=== PATIENT | male | born 1965 | race Caucasian/White ===

== ENCOUNTER 2025-05-16 07:49 | Outpatient (AMB) | payer OTHER, SELFPAY ==
--- NOTE | 2025-05-16 07:46 | A.PHYSOV_ITS ---
Vital Signs 05/16/25 07:51 Height 6 ft Weight 215 lb BMI 29.2 Intake Visit Reasons: MRI followup Intake Note: Patient is a 59 year old female in office today for a mri follow up visit. 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 The onset of symptoms was in late February or early March 2025 without any preceding injury. The patient was initially seen on April 03, 2025, and was treated with an 18- day prednisone taper and physician-guided home exercises, but the pain continued to be significant, rated at 7/10. Due to the failure of conservative care, a lumbosacral spine MRI was obtained on April 16, 2025. Past medical history is notable for a stable L3 compression fracture identified on lumbar sacral spine x-rays from July 26, 2020. The most recent prior MRI was in 2018. The patient denies any change in bowel or bladder habits, fever, or chills. Patient returned today with results of updated lumbosacral spine MRI dated 04/16/2025, please see below for the complete description of the MRI. Images were independently reviewed. He presented accompanied by his . Radicular symptoms continued to be reported on the right side. He has been awakened from the deep sleep in the middle of the night by pain. Pain Description - Onset: Late February or early March 2025, without specific injury. - Location: Pain is located in the lower back and radiates to the right buttock and down the back of the leg. - Radiation: The patient also reports associated pain in the right groin. - Severity: The pain was rated 7/10 after a course of prednisone. - Quality: The pain can be severe enough to cause screaming at night. - Timing: The pain is intermittent. Results - Lumbosacral spine MRI (April 16, 2025): - L2-L3: Right foraminal/extraforaminal disc protrusion with facet arthropathy, new since 2018, contacting the traversing right L3 and exiting right L2 nerve roots, causing moderate right-sided neural foraminal narrowing. - L3-L4: Left paracentral and foraminal disc protrusion contacting the giancarlo ing left L4 nerve root, with moderate right neural foraminal narrowing touching the exiting right L3 nerve root. - L4-L5: Diffuse disc bulge with moderate to severe left neural foraminal narrowing. - L5-S1: Unremarkable. - Lumbosacral spine X-rays (July 26, 2020): Stable L3 compression fracture. [facility] Medical History (Updated 05/16/25 @ 08:02 by Johan Baltazar DO) Lumbar radiculitis Lumbar disc herniation Social History Household Members: Spouse Alcohol intake: current Alcohol intake frequency: does not drink Use of substances other than those prescribed or required for medical reasons: No Review of Systems Narrative Review of Systems - Constitutional: Denies fever or chills. - Gastrointestinal: Denies any change in bowel habits. - Genitourinary: Denies any change in bladder habits. Physical Exam Exam Exam: Physical Exam - Constitutional: Appears in no acute distress. - Gait: No antalgic gait observed. - Musculoskeletal: Lumbar range of motion is restricted in side bending and rotation. - Back: Tenderness to palpation over the mid to lower lumbar spinous processes. - Neurological: Examination of the lower extremities is nonfocal. - Special Tests: Dural tension signs are negative. - Neurological: Hyperactive maneuvers are negative. - Neurological: No upper motor neuron signs demonstrated. Vital Signs: BMI result Body Mass Index 29.2 Assessment & Plan Assessment & Plan (1) Lumbar disc herniation: Code(s): M51.26 - Other intervertebral disc displacement, lumbar region Category: Medical (2) Lumbar radiculitis: Code(s): M54.16 - Radiculopathy, lumbar region Category: Medical Plan Pain Management - Affect: The patient reports severe pain that causes screaming at night and expresses fear regarding surgery. - Analgesia: Current pain level is 7/10, with a prior unsuccessful trial of an 18-day prednisone taper. - Activities of Daily Living: Not specifically discussed, but the pain is significant enough to cause intermittent problems and disturb sleep. Plan Patient was informed and verbally consented to the use of an ambient scribe for clinic note documentation during this visit. 1. Lumbar Radiculopathy The patient's right-sided radicular symptoms are attributed to findings on the recent lumbar MRI, most pertinently a new right foraminal/extraforaminal disc protrusion at L2-L3 contacting the right L2 and L3 nerve roots. The patient has failed conservative management with a prednisone taper and home exercises. After discussing options including surgery and injections, the patient expressed a desire to avoid surgery and proceed with an injection. The plan is to schedule a right L2 and L3 transforaminal epidural steroid injection with sedation, per the patient's request. The procedure will be performed at [facility], and the office will obtain prior insurance authorization before calling the patient to schedule. 2. History Of Lumbar Compression Fracture The patient's history of an L3 compression fracture was noted, which is stable and healed. This is not contributing to the current symptoms, and no new treatment is indicated for this issue. Discussion Notes I reviewed the results of the patient's recent lumbar spine MRI (04/16/2025) with the patient. I explained that the most pertinent finding is a new disc protrusion at the L2-L3 level on the right, which is irritating the nerve roots and is the likely cause of the patient's symptoms. I also noted that the old L3 compression fracture is healed and not a source of the current pain. We discussed treatment options, which include doing nothing, surgery, or a targeted epidural steroid injection. The patient expressed fear of surgery and wished to proceed with an injection. Due to past painful experiences, the patient requested sedation for the procedure, and I agreed this was a reasonable option. I explained that the injection would be targeted near the irritated L2 and L3 nerve roots. I informed the patient that my office would obtain insurance authorization for a right L2-L3 transforaminal epidural steroid injection and then they would be called to schedule the procedure, which is performed at [facility] on Mondays. The patient and the patient's family understood and agreed with the plan. Risks and benefits of the procedure were discussed with the patient. Potential alternative measures were also discussed. Patient understands that the procedure is completely elective. Potential side effects associated with injectable medications were discussed. All questions were answered to the patient's satisfaction. Patient Instructions - Your recent back MRI shows a new disc bulge that is pressing on a nerve, which is causing your back and leg pain. - We will schedule you for an injection of steroid medication in your back to help with the pain and inflammation. - You have requested to have sedation (be put into a light sleep) for the procedure to make you more comfortable, which we will arrange. - Our office will first get approval from your insurance and then will call you to schedule the procedure. - The procedure will take place at [facility]. Orders: Referrals Physiatry Procedure Notification M51.26 - Other intervertebral disc displacement, lumbar region, M54.16 - Radiculopathy, lumbar region Coding Level of Care Code Est Pt Level 4 (96761) Complex visit Add On G2211 Diagnoses Lumbar disc herniation M51.26 Lumbar radiculitis M54.16
[2025-05-16 07:51] VITALS: BMI 29.2
--- OUTSIDE RECORDS SUMMARY | 2025-05-16 07:55 | XMS_ITS | Clinical Summary ---
Author Organization [facility] Address [address] [place] [address] Care Team Providers Care Ear Flap Binder Name Role Phone Ranjit Lynne MD Primary Care Provider [phone] Allergies No known active allergies Medications Medication Sig Dispensed Refills Start Date End Date Status amLODIPine (NORVASC) tablet 5 mg TAKE 1 TABLET BY MOUTH EVERY DAY 0 04/16/2020 Active diclofenac (VOLTAREN) 75 MG EC tablet Take 75 mg by mouth. 0 04/08/2020 Active LORazepam (ATIVAN) 1 MG tablet TAKE 1 TABLET BY MOUTH TWICE A DAY NEEDED 0 06/20/2020 Active metoprolol succinate (TOPROL-XL) 24 hr tablet 25 mg Take 25 mg by mouth. 0 05/28/2020 Active PARoxetine (PAXIL) 40 MG tablet Take 40 mg by mouth daily. 0 05/11/2020 Active pravastatin (PRAVACHOL) tablet 40 mg TAKE 1 TABLET BY MOUTH EVERY DAY 0 04/16/2020 Active oxyCODONE (ROXICODONE) 5 MG immediate release tablet Take 1-2 tabs every 4 hours needed for pain following your right shoulder surgery 30 tablet 0 10/03/2020 Active Active Problems Problem Noted Date Diagnosed Date Tendinopathy of right rotator cuff 07/19/2020 Impingement syndrome of right shoulder Social History Tobacco Use Types Packs/Day Years Used Date Smoking Tobacco: Never Assessed Sex and Gender Information Value Date Recorded Sex Assigned at Not on file Gender Identity Not on file Sexual Orientation Not on file Job Start Date Occupation Industry Not on file Not on file Not on file Last Filed Vital Signs Vital Sign Reading Time Taken Comments Blood Pressure - - Pulse - - Temperature - - Respiratory Rate - - Oxygen Saturation - - Inhaled Oxygen Concentration - - Weight 95.3 kg (210 lb) 07/09/2020 10:40 AM EST Height 182.9 cm (6') 07/09/2020 10:40 AM EST Body Mass Index 28.48 07/09/2020 10:40 AM EST Plan of Treatment Health Maintenance Due Date Last Done Comments Hepatitis B Vaccines (1 of 3 - 3-dose series) 1965 Hepatitis C Screening 1965 COVID-19 Vaccine (#1) 04/17/1968 Depression Screening 1979 BMI Counseling 10/15/1985 Preventative Health Evaluation 10/15/1985 Colon Cancer Screening (Colonoscopy) 10/15/2012 Shingrix-Zoster Vaccine (1 of 2) 10/15/2017 Influenza Vaccine (#1) 2025 DTap / Tdap / Td (2 - Td or Tdap) 02/19/2026 016 Pneumococcal Vaccine Aged Out No long er eligible based on patient's age to complete this topic RSV Ped < 20 months Aged Out No longe r eligible based on patient's age to complete this topic Care Teams Ear Flap Binder Relationship Specialty Start Date End Date Ranjit Lynne MD [address] [place] [id number] PCP - General Internal Medicine 05/17/20
--- OUTSIDE RECORDS SUMMARY | 2025-05-16 07:55 | XMS_ITS | Clinical Summary ---
Author Organization 175 [facility] Address [address] [place] [address] Phone Care Team Providers Care [employer]er Name Role Phone Elaine Elizabeth DO Primary Care Provider [phone] Allergies No known active allergies Medications clotrimazole (LOTRIMIN) 1 % cream Apply to skin and toenails daily for 12 weeks 4 Active LORazepam (ATIVAN) 1 mg tablet Take 1 tablet (1 mg total) by mouth 2 (two) times a day if needed. 1 Active PARoxetine (PAXIL) 40 mg tablet Take 1 tablet (40 mg total) by mouth. 0 Active prazosin (MINIPRESS) 1 mg capsule Take by mouth. 3 Active hydrocortisone 2.5 % cream Apply affected area twice a day 2 Active pravastatin (PRAVACHOL) 40 mg tablet TAKE 1 TABLET BY MOUTH EVERY DAY 90 tablet 1 5 Active gabapentin (NEURONTIN) 100 mg capsule Take 1 capsule (100 mg total) by mouth 3 (three) times a day. 270 each 5 Active cyclobenzaprin e (FLEXERIL) 10 mg tablet Take 1 tablet (10 mg total) by mouth at bedtime as needed for muscle spasms. 30 tablet 2 5 Active amLODIPine (NORVASC) 5 mg tablet TAKE 1 TABLET BY MOUTH 1 TIME EACH DAY. 90 tablet 5 Active amLODIPine (NORVASC) 5 mg tablet Take 1 tablet (5 mg total) by mouth 1 (one) time each day. 90 each 1 02/24/202 5 025 Discontinued Active Problems Problem Noted Date Diagnosed Date Anxiety and depression 04/10/2024 Overview (04/10/2024): Psychiatry prescribing Hyperlipidemia 04/10/2024 Hypertension 04/10/2024 Low back pain 04/10/2024 Overview (04/10/2024): WC related, 2005; PVSS BYRON (obstructive sleep apnea) 04/10/2024 Overview (04/10/2024): [facility] Home Polysomnogram: Date 03/29/2017; AHI 8, Unclassified apneas 0; Obstructive apneas 23; Central apneas 4; Mixed apneas 0; hypopneas 22; average oxygen saturation 94% (lowest 86% without saturations <88% for 5% or more of study) [facility] Polysomnogram treatment study. Date 07/05/2017 . SE 70 % SM 73 %; spent 12 % of the study in REM. At the pressure of CPAP @ 16; RDI 4.3 (AHI 4.3), Central apneas 4; Obstructive apneas 0; Mixed apneas 0; hypopneas 0; RERAs 0; and, average oxygen saturation was 95%. For the entire study, PLMs ~37. Note; central apnea emergence on higher CPAP pressures; autoset CPAP 6-16 recommended. 318 pt declines CPAP Eczema of both external ears 04/29/2022 Tendinopathy of right rotator cuff 07/19/2020 Impingement syndrome of right shoulder 1 Hearing loss 09/09/2018 Impaired fasting glucose 02/05/2016 Encounters Date Type Department Care Team Description 04/16/2025 7:42 AM EST - 04/16/2025 11:59 PM EST Hospital Encounter [facility] MRI [address] [place] [id number] Radiculopathy; Other intervertebral disc displacement, lumbar region Discharge Disposition: Home or Self Care 04/10/2025 1:15 PM EDT Office Visit Orthopedic Surgery [facility] [address] [facility] [address] [place] [phone] Vladimir Reyes, DPM Bursitis of right foot (Primary Dx); Plantar fascial fibromatosis from Last 3 Months Immunizations Immunization Administration Dates Next Due Tdap Tetanus diptheria acell ular pertussis (Boostrix; Adacel) 7yo and older 02/20/2016 Surgical History Surgery Date Site/Laterality Comments COLONOSCOPY 01/13/2019 PROCEDURE: HISTORICAL COLONOSCOPY; COMMENT: no polyps SHOULDER SURGERY 08/08/2020 Right PROCEDURE: HISTORICAL SHOULDER SURGERY; COMMENT: arthroscopy, distal clavicle excision, AC release, acromioplasty Medical History Medical History Date Comments Hypertension DX:Hypertension Anxiety and depression DX:Anxiet y and depression Low back pain DX:Low back pain BYRON (obstructive sleep apnea) DX :BYRON (obstructive sleep apnea) Hyperlipidemia DX:Hyperlipidemi a Anemia 02/05/2016 DX:Anemia Prediabetes 02/05/2016 DX:Prediabetes History of spinal fracture 02/05/2016 DX:Hi story of spinal fracture; COMMENT: Lumbar, closed Family History Medical History Relation Name Comments Hypertension Father [place] Prostate cancer Father Hypertension Mother Coronary artery disease Neg Hx Diabetes Neg Hx Relation Name Status Comments Father Mother Social History Tobacco Use Types Packs/Day Years Used Date Smoking Tobacco: Former Cigarettes Smokeless Tobacco: Never Tobacco Cessation:Counseling Given: Not Answered Alcohol Use Standard Drinks/Week Comments Yes 0 (1 standard drink = 0.6 oz pur e alcohol) Sex and Gender Information Value Date Recorded Sex Assigned at Not on file Legal Sex Male 9:16 PM EST Gender Identity Not on file Sexual Orientation Not on file Obstetrics History Last Filed Vital Signs Vital Sign Reading Time Taken Comments Blood Pressure 132/84 01/16/2025 4:21 PM EDT Pulse 86 01/16/2025 4:03 PM EDT Temperature - - Respiratory Rate 16 01/16/2025 4:03 PM EDT Oxygen Saturation - - Inhaled Oxygen Concentration - - Weight 98 kg (216 lb) 01/16/2025 4:03 PM EDT Height 182.9 cm (6') 11/16/2024 9:00 AM EDT Body Mass Index 29.29 11/16/2024 9:00 AM EDT Plan of Treatment Upcoming Encounters Date Type Department Care Team (Late st Contact Info) Description 07/20/2025 8:00 AM EST Office Visit [facility] [address] [facility] [address] Chino Dutton PA [address] [place] [address] Health Maintenance Due Date Last Done Comments Hepatitis B Vaccines (1 of 3 - 19+ 3-dose series) 10/15/1986 Pneumococcal Vaccine: 50+ Years (1 of 1 - PCV) 10/15/2017 RSV Immunization Adult Patients (1 - Risk 50-74 years 1-dose series) 10/15/2017 Zoster Vaccines (1 of 2) 10/15/2017 HIV Screening 05/23/2022 Medicare Annual Wellness Visit 05/23/2022 Social Influencers of Health Screening 05/23/2022 Depression Screening 06/14/2024 COVID-19 Vaccine (3 - 2024-2 6 season) 2025 12/03/2020, 11/12/2020 Influenza Vaccine (#1) 2025 Hypertension/CHF/CAD Annual BMP Blood Test 01/17/2026 01/17/2025, 08/08/2024, 01/05/2024 DTaP,Tdap,and Td Vaccines (2 - Td or Tdap) 02/19/2026 02/20/2016 Colorectal Cancer Screening: Colonoscopy 01/13/2029 01/13/2019 Cholesterol Screening (Lipid Panel) 01/17/2030 01/17/2025, 01/05/2024, 01/05/2024 Hepatitis C Screening Completed 08/18/2021 HIB Vaccines Aged Out No longer eligi ble based on patient's age to complete this topic HPV Vaccines Aged Out No longer eligi ble based on patient's age to complete this topic Hepatitis A Vaccines Aged Out No long er eligible based on patient's age to complete this topic IPV Vaccines Aged Out No longer eligi ble based on patient's age to complete this topic MMR Vaccines Aged Out No longer eligi ble based on patient's age to complete this topic Meningococcal ACWY Vaccine Aged Out N o longer eligible based on patient's age to complete this topic Meningococcal B Vaccine Aged Out No l onger eligible based on patient's age to complete this topic RSV Immunization Patients Under 20 months Aged Out No longer eligible b ased on patient's age to complete this topic Varicella Vaccines Aged Out No longer eligible based on patient's age to complete this topic Procedures Procedure Name Priority Date/Time Associated Diagnosis Comments MR LUMBAR SPINE WO CONTRAST Routine 04/16/2025 8:20 AM EST Radiculopathy Other intervertebral disc displacement, lumbar region COMPREHENSIVE METABOLIC PANEL Routine 01/17/2025 8:34 AM EDT Primary hypertension Mixed hyperlipidemia LIPID PANEL WITH REFLEX TO DIRECT LDL Routine 01/17/2025 8:34 AM EDT Primary hypertension Mixed hyperlipidemia HEPATITIS C SCREENING Routine 08/18/2021 COLONOSCOPY Routine 01/13/2019 from Last 3 Months or Most Recently Relevant to Health Maintenance Results * MR Lumbar Spine wo Contrast (04/16/2025 8:20 AM EST) Anatomical Region Laterality Modality L-spine, Spine Magnetic Resonan ce 04/17/2025 3:46 AM EST Impressions 04/17/2025 4:07 AM EST 1. Multilevel lumbar spondylosis, as above, most prominent at L2-L3 and L3-L4; progressed from prior 2. Chronic compression deformity of L3 -------- FINAL REPORT -------- Dictated By: Quiana Pack Dictated Date: 04/17/2025 03:46 ET Assigned Physician: Quiana Pack Reviewed and Electronically Signed By: Quiana Pack Signed Date: 04/17/2025 04:07 ET Workstation ID: [id number] Transcribed By: Self Edit Transcribed Date: 04/17/2025 03:46 ET Narrative 04/17/2025 4:07 AM EST INDICATION: Radiculopathy, disc displacement . Low back pain referred to the right leg. COMPARISON: Correlation is made with [facility] MRI of the lumbar spine dated October 2017 TECHNIQUE: Multiplanar, multisequence MRI was performed of the lumbar spine without IV contrast. FINDINGS: Study assumes 5 lumbar type vertebral bodies. Chronic moderate compression deformity of L3. Minimal grade 1 retrolisthesis of L3 on L4. Conus terminates at T12. Bone marrow signal is heterogeneous with vertebral body hemangioma at T12 and L2, similar to prior. Multilevel anterior marginal osteophyte formation. Multilevel disc desiccation. Specific findings are seen at the following levels: T12-L1:No significant spinal canal stenosis or neural foraminal narrowing on sagittal view L1-L2:Mild diffuse disc bulge without significant spinal canal stenosis or neural foraminal narrowing. L2-L3:Diffuse disc bulge with new right foraminal/extra foraminal protrusion with facet arthropathy which effaces the right lateral recess and touches the right traversing L3 nerve root and exiting right L2 nerve root and results in moderate right-sided neural foraminal narrowing; new from prior. Mild left-sided neural foraminal narrowing. Additionally, posterior osteophyte formation is present. L3-L4:Diffuse disc bulge with left paracentral and foraminal disc protrusion with bilateral facet arthropathy which effaces and narrows the left lateral recess and results in moderate to severe left neural foraminal narrowing with touching of the traversing left L4 nerve root and moderate right-sided neural foraminal narrowing with touching of the exiting right L3 nerve root. L4-L5:Diffuse disc bulge with facet arthropathy (eccentric to the left) which effaces the ventral thecal sac and results in moderate to severe left neural foraminal narrowing with touching of the exiting left L4 nerve root. L5-S1:No significant spinal canal stenosis or neural foraminal narrowing. Facet arthropathy. Miscellaneous: Bilateral parapelvic cysts Procedure Note Quiana Pack MD - 04/17/2025 INDICATION: Radiculopathy, disc displacement . Low back pain referred tothe right leg. COMPARISON: Correlation is made with [facility] MRI of the lumbar spinedated October 2017 TECHNIQUE: Multiplanar, multisequence MRI was performed of the lumbarspine without IV contrast. FINDINGS: Study assumes 5 lumbar type vertebral bodies. Chronic moderatecompression deformity of L3. Minimal grade 1 retrolisthesis of L3 on L4.Conus terminates at T12. Bone marrow signal is heterogeneous withvertebral body hemangioma at T12 and L2, similar to prior. Multilevelanterior marginal osteophyte formation. Multilevel disc desiccation.Specific findings are seen at the following levels: T12-L1:No significant spinal canal stenosis or neural foraminal narrowingon sagittal view L1-L2:Mild diffuse disc bulge without significant spinal canal stenosis orneural foraminal narrowing. L2-L3:Diffuse disc bulge with new right foraminal/extra foraminalprotrusion with facet arthropathy which effaces the right lateral recessand touches the right traversing L3 nerve root and exiting right L2 nerveroot and results in moderate right-sided neural foraminal narrowing; newfrom prior. Mild left-sided neural foraminal narrowing. Additionally,posterior osteophyte formation is present. L3-L4:Diffuse disc bulge with left paracentral and foraminal discprotrusion with bilateral facet arthropathy which effaces and narrows theleft lateral recess and results in moderate to severe left neuralforaminal narrowing with touching of the traversing left L4 nerve root andmoderate right-sided neural foraminal narrowing with touching of theexiting right L3 nerve root. L4-L5:Diffuse disc bulge with facet arthropathy (eccentric to the left)which effaces the ventral thecal sac and results in moderate to severeleft neural foraminal narrowing with touching of the exiting left L4 nerveroot. L5-S1:No significant spinal canal stenosis or neural foraminal narrowing.Facet arthropathy. Miscellaneous: Bilateral parapelvic cysts IMPRESSION: 1. Multilevel lumbar spondylosis, as above, most prominent at L2-L3 andL3-L4; progressed from prior 2. Chronic compression deformity of L3 -------- FINAL REPORT -------- Dictated By: Quiana Pack Dictated Date: 04/17/2025 03:46 ET Assigned Physician: Quiana Pack Reviewed and Electronically Signed By: Quiana Pack Signed Date: 04/17/2025 04:07 ET Workstation ID: [id number] Transcribed By: Self Edit Transcribed Date: 04/17/2025 03:46 ET Johan Baltazar DO [facility] MRI PROCEDURES Final Result * (ABNORMAL) Lipid panel with reflex to direct LDL (01/17/2025 8:34 AM EDT) Cholesterol 189 0 - 200 mg/dL LAB CHEMISTRY METHOD 01/17/2025 12:27 PM [facility] Triglycerides 191(H) 0 - 150 mg/dL LAB CHEMISTRY METHOD 01/17/2025 12:27 PM [facility] HDL 45 >=40 mg/dL LAB CHEMISTRY METHOD 01/17/2025 12:27 PM [facility] LDL Calculated 106(H) 0 - 100 mg/dL LAB CHEMISTRY METHOD 01/17/2025 12:27 PM [facility] Comment:Estimated LDL Calcul ated using equation: Total cholesterol - HDL cholesterol - (Triglycerides/5) VLDL Cholesterol Andreas 38.2 mg/dL LAB CHEMISTRY METHOD 01/17/2025 12:27 PM [facility] Non HDL Chol. (LDL+VLDL) 144 <145 mg/dL LAB CHEMISTRY METHOD 01/17/2025 12:27 PM [facility] Chol/HDL Ratio 4.2 0.0 - 4.4 LAB CHEMISTRY METHOD 01/17/2025 12:27 PM [facility] Blood Venous blood specimen / Unknown Venipuncture / Unknown 01/17/2025 8:34 AM EDT 01/17/2025 8:34 AM EDT [place] [facility] BLOOD ORDERABLES Fi nal Result [facility] [address] [place] [address], * (ABNORMAL) Comprehensive metabolic panel (01/17/2025 8:34 AM EDT) Sodium 140 133 - 145 mmol/L LAB CHEMISTRY METHOD 01/17/2025 12:30 PM [facility] Potassium 4.5 3.5 - 5.5 mmol/L LAB CHEMISTRY METHOD 01/17/2025 12:30 PM [facility] Chloride 109 96 - 110 mmol/L LAB CHEMISTRY METHOD 01/17/2025 12:30 PM [facility] CO2 26 21 - 32 mmol/L LAB CHEMISTRY METHOD 01/17/2025 12:30 PM [facility] Anion Gap 5 3 - 11 LAB CHEMISTRY METHOD 01/17/2025 12:30 PM [facility] Glucose 113(H) 70 - 100 mg/dL LAB CHEMISTRY METHOD 01/17/2025 12:30 PM [facility] BUN 13 5 - 25 mg/dL LAB CHEMISTRY METHOD 01/17/2025 12:30 PM [facility] Creatinine 0.77 0.70 - 1.30 mg/dL LAB CHEMISTRY METHOD 01/17/2025 12:30 PM [facility] eGFR 104 >=60 mL/min/1. 73m2 LAB CHEMISTRY METHOD 01/17/2025 12:30 PM [facility] Comment:Calculation based on the Chronic Kidney Disease Epidemiology Collaboration (CKD-EPI) equation refit without adjustment for race. BUN/Creatinine Ratio 16.9 LAB CHEMISTRY METHOD 01/17/2025 12:30 PM [facility] Calcium 9.3 8.5 - 10.5 mg/dL LAB CHEMISTRY METHOD 01/17/2025 12:30 PM [facility] AST (SGOT) 18 10 - 42 unit/L LAB CHEMISTRY METHOD 01/17/2025 12:30 PM [facility] ALT (SGPT) 36 10 - 60 unit/L LAB CHEMISTRY METHOD 01/17/2025 12:30 PM [facility] Alkaline Phosphatase 73 42 - 121 unit/L LAB CHEMISTRY METHOD 01/17/2025 12:30 PM [facility] Total Protein 7.2 6.0 - 8.0 g/dL LAB CHEMISTRY METHOD 01/17/2025 12:30 PM [facility] Albumin 4.1 3.2 - 5.0 g/dL LAB CHEMISTRY METHOD 01/17/2025 12:30 PM EDT [facility] Total Bilirubin 0.7 0.0 - 1.4 mg/dL LAB CHEMISTRY METHOD 01/17/2025 12:30 PM EDT [facility] Blood Venous blood specimen / Unknown Venipuncture / Unknown 01/17/2025 8:34 AM EDT 01/17/2025 8:34 AM EDT [place] [facility] BLOOD ORDERABLES Fi nal Result [facility] [address] [place] [address], * Hepatitis C Screening (08/18/2021) Pathologist [facility] Hepatitis C Screening negative Historical Provider HEALTH MAINTENANCE Final Result * Colonoscopy (01/13/2019) Pathologist [facility] Colonoscopy completed Anatomical Region Laterality Modality Other Historical Provider HEALTH MAINTENANCE Final Result from Last 3 Months or Most Recently Relevant to Health Maintenance Insurance [employer] MED[employer] Member Subscriber Plan / Payer (Ef fective 2019-Present) Name:ISAURO AGRAWAL Relation to Subscriber:Self Name:Isauro Agrawal Payer ID:[id number] Group ID:[id number] Type:Not on file Address: [address] [facility] [place] [address] Care Teams [employer] Relationship Specialty Start Date End Date Elaine Elizabeth DO [address] [place] [address] [phone] (work) PCP - General Internal Medicine 04/21/24
== END 2025-05-16 08:07 | disposition home or self-care (01) ==
LOC: HO.HPHYS 07:50
PROVIDERS: PCP Internal Medicine; Visit Provider Physical Medicine & Rehabilitation
DX: M51.26 Other intervertebral disc displacement, lumbar region (principal); M54.16 Radiculopathy, lumbar region
CPT/HCPCS: 99214; G2211

== ENCOUNTER → 2025-05-16 07:49 | Outpatient (BNVA) | payer OTHER, SELFPAY | PROVIDERS: PCP Internal Medicine; Visit Provider Physical Medicine & Rehabilitation | DX: M51.16 Intervertebral disc disorders with radiculopathy, lumbar region (principal); Z87.81 Personal history of (healed) traumatic fracture | CPT/HCPCS: 99212 ==

== ENCOUNTER 2025-05-28 09:29 | Day surgery (SDC) | payer OTHER, SELFPAY ==
[2025-05-24 09:17] VITALS: BMI 29.2
--- NOTE | 2025-05-24 10:12 | HO.ANESPROP2 ---
Documented by User: Yvonne Pacheco NP 05/24/25 10:13 HPI - Anesthesia Eval Consult details Narrative: 59yo M for Right L2 and L3 Lumbar Transforaminal [facility]ORA PMFSH Active Problems Active Problems: All Active Problems Lumbar radiculitis (Acute) Lumbar disc herniation (Acute) Past Medical History Medical History Rib fracture Impaired fasting glucose Anxiety Depression BYRON (obstructive sleep apnea) Hearing loss Back pain Elevated cholesterol HTN (hypertension) Lumbar radiculitis Lumbar disc herniation Surgical History Surgical History Hx of shoulder surgery H/O colonoscopy Social History Social History Household Members: Spouse Alcohol intake: current Alcohol intake frequency: does not drink Patient Tobacco Use Status: Former Tobacco user Tobacco use type: Cigarette Use of substances other than those prescribed or required for medical reasons: No Are you DNR?: No Advance Directives: No Advance Directives Information Provided: Yes Meds Allergies Allergy/AdvReac Type Severity Reaction Status Date / Time No Known Allergies Allergy Verified 05/28/25 10:29 Home Medications ?Medication ?Instructions ?Recorded ?Confirmed ?Last Taken ?Type amlodipine 5 mg tablet 5 mg PO DAILY 05/07/25 05/28/25 Unknown History cyclobenzaprine 10 mg tablet 10 mg PO BEDTIME 05/07/25 05/28/25 Unknown History gabapentin 300 mg capsule 300 mg PO BID 05/07/25 05/28/25 Unknown History lorazepam 0.5 mg tablet 0.5 mg PO DAILY PRN Anxiety 05/07/25 05/28/25 Unknown History paroxetine HCl 30 mg tablet 30 mg PO DAILY 05/07/25 05/28/25 Unknown History pravastatin 40 mg tablet 40 mg PO DAILY 05/07/25 05/28/25 Unknown History prazosin 1 mg capsule 1 mg PO BEDTIME 05/07/25 05/28/25 Unknown History Exam Height,Weight and Vital Signs: Height 6 ft Weight 97.522 kg Assessment and Plan Assessment Anesthesia Assessment: Chart Reviewed Documented by User: Candace Duenas MD 05/28/25 10:47 [facility] Past Medical History Medical History Rib fracture Impaired fasting glucose Anxiety Depression BYRON (obstructive sleep apnea) Hearing loss Back pain Elevated cholesterol HTN (hypertension) Lumbar radiculitis Lumbar disc herniation Family History Family history of problems with anesthesia: No Surgical History Surgical History Hx of shoulder surgery H/O colonoscopy History of Problems with Anesthesia: No Social History Social History Household Members: Spouse Alcohol intake: current Alcohol intake frequency: does not drink Patient Tobacco Use Status: Former Tobacco user Tobacco use type: Cigarette Use of substances other than those prescribed or required for medical reasons: No Are you DNR?: No Advance Directives: No Advance Directives Information Provided: Yes Meds Allergies Allergy/AdvReac Type Severity Reaction Status Date / Time No Known Allergies Allergy Verified 05/28/25 10:29 Home Medications ?Medication ?Instructions ?Recorded ?Confirmed ?Last Taken ?Type amlodipine 5 mg tablet 5 mg PO DAILY 05/07/25 05/28/25 Unknown History cyclobenzaprine 10 mg tablet 10 mg PO BEDTIME 05/07/25 05/28/25 Unknown History gabapentin 300 mg capsule 300 mg PO BID 05/07/25 05/28/25 Unknown History lorazepam 0.5 mg tablet 0.5 mg PO DAILY PRN Anxiety 05/07/25 05/28/25 Unknown History paroxetine HCl 30 mg tablet 30 mg PO DAILY 05/07/25 05/28/25 Unknown History pravastatin 40 mg tablet 40 mg PO DAILY 05/07/25 05/28/25 Unknown History prazosin 1 mg capsule 1 mg PO BEDTIME 05/07/25 05/28/25 Unknown History Exam Airway Mallampati Class: II TM Dist: >3cm Neck ROM: Full Heart: rrr Lungs: cta Assessment and Plan Assessment Anesthesia Assessment: Anesthesia Plan Discussed Final Anesthetic Review Family History of Problems with Anesthesia: No History of Problems with Anesthesia: No NPO: Yes ASA Class: III Final Preanesthetic Review: No Changes in Pt Med Stat, Meds/Allgs Chart Reviewed, Consent Obtained/Reviewed and Anes Risks/Benef Reviewed Patient Risk: Intermediate Procedure Risk: Low Anesthetic Plan Anesthetic Plan: MAC: Disposition: Standard PACU
--- NOTE | ~2025-05-28 | FL_ITS ---
EXAMINATION: FL GUIDANCE ONLY HISTORY: Procedural guidance COMPARISON: None available. TECHNIQUE: Fluoroscopy time: 20 seconds. Cumulative Dose: 5.40 mGy. DAP: 233.87 uGym2 Images: 2. FINDINGS: Fluoroscopic spot films of the lumbar spine demonstrate needles and contrast material inferior to the right L2 and L3 pedicles. FL/FL guidance in OR IMPRESSION: Fluoroscopy during procedure. Please see procedure report for additional information. Electronically signed by: Elton Trivedi MD 05/29/2025 07:18 AM [facility]
[2025-05-28 10:24] VITALS: BMI 28.9
[2025-05-28 10:28] VITALS: BP 140/88; PULSE 62; RESP 14; TEMP 36.2; O2SAT 98
[2025-05-28] MEDS: Lactated Ringers 1,000 ML 100 ML IVCONT (10:43)
--- NOTE | 2025-05-28 11:00 | MHC.SHP ---
Pre-Procedural Eval Section A - 24 Hr Update-Section A only Date of Service: 05/28/25 The patient is an INPATIENT: No The patient has been examined within 24 hours of the surgical procedure. The History & Physical has been completed within 30 days and I have reviewed it.: Yes Section B - Complete if H&P > 30 days Chief Complaint: Radiculopathy, lumbar region Allergies: Allergies Allergy/AdvReac Type Severity Reaction Status Date / Time No Known Allergies Allergy Verified 05/28/25 10:29 Plan I have reviewed the history and physical and performed a pertinent physical examination on my patient. No changes have occurred unless specified. Time Spent With Patient Time: Total time managing care of this patient today ____ minutes.
--- NOTE | 2025-05-28 11:00 | W.PM.OPN ---
Operative Note Operative Note Date of Service: 05/28/25 Narrative: Procedure performed: Right L2 and L3 transforaminal epidural steroid injection Preop diagnosis: Lumbar radiculitis Postop diagnosis: The same Anesthesia: Mac After informed consent was obtained, patient was placed on the procedure table in a prone position. Skin over lumbosacral area was prepped and draped in usual sterile manner. Right L2 pedicle was visualized utilizing fluoroscopy. 5 inch 22 gauge spinal needle was introduced percutaneously and advanced towards the pedicle at about 6 o'clock position. Once level of neural foramina was reached, needle placement was verified utilizing 3 cc of Omnipaque contrast solution. Excellent flow through the neural foramina and epidural spread was identified without evidence of vascular uptake. Total volume of 6 cc containing 2 cc of 1% lidocaine, 40 mg of triamcinolone and normal saline solution were injected after negative aspiration for blood and cerebrospinal fluid. Identical procedure was repeated at L3 level. Radiation exposure was documented in the chart.
[2025-05-28 11:25] VITALS: BP 134/80; PULSE 65; RESP 16; TEMP 37.1; O2SAT 95
[2025-05-28 11:30] VITALS: BP 135/84; PULSE 60; RESP 18; O2SAT 94
[2025-05-28 11:40] VITALS: BP 125/89; PULSE 62; RESP 18; O2SAT 94
[2025-05-28 11:54] VITALS: BP 123/77; PULSE 65; RESP 16; TEMP 37.1; O2SAT 97
== END 2025-05-28 12:32 | disposition home or self-care (01) ==
PROVIDERS: PCP Internal Medicine; Visit Provider Physical Medicine & Rehabilitation
PROC: (CPT 64483; principal; 2025-05-28 11:10)
DX: M54.16 Radiculopathy, lumbar region (principal); M51.26 Other intervertebral disc displacement, lumbar region; R26.2 Difficulty in walking, not elsewhere classified; I10 Essential (primary) hypertension; E78.00 Pure hypercholesterolemia, unspecified; R73.01 Impaired fasting glucose; G47.33 Obstructive sleep apnea (adult) (pediatric); F41.9 Anxiety disorder, unspecified; Z79.899 Other long term (current) drug therapy
CPT/HCPCS: 64483; 64484; J2003; J2250; J3010; J3301; Q9967

== ENCOUNTER → 2025-05-28 09:29 | Outpatient (BNV) | payer OTHER, SELFPAY | PROVIDERS: PCP Internal Medicine; Visit Provider Physical Medicine & Rehabilitation | DX: M54.16 Radiculopathy, lumbar region (principal) | CPT/HCPCS: 64483; 64484 ==